=== PATIENT | male | born 1965 | race Caucasian/White ===

== ENCOUNTER → 2018-03-10 | Outpatient (CLI) | payer OTHER ==
--- NOTE | 2018-03-11 07:55 | RAD ---
Bilateral lower extremity venous ultrasound, 03/10/2018: History: Bilateral leg pain Duplex evaluation of the deep veins in the lower extremities was performed including grayscale, color-flow and spectral Doppler analysis. The femoral and popliteal veins demonstrate normal compressibility and normal responses to distal augmentation maneuvers. Color imaging of those vessels shows no evidence of intraluminal clot. The visualized deep veins in both calves are patent. IMPRESSION: There is no sonographic evidence of deep vein thrombosis in either lower extremity. Electronically signed by: Vipin Terrell MD (03/11/2018 7:51 AM) [facility]
== END | disposition home or self-care (01) ==
LOC: US 16:26
PROVIDERS: ATTEND Family Medicine
DX: R60.0 Localized edema (principal); Z86.718 Personal history of other venous thrombosis and embolism
CPT/HCPCS: 93970

== ENCOUNTER → 2018-05-20 | Outpatient (CLI) | payer OTHER ==
--- NOTE | 2018-05-20 13:07 | RAD ---
CT ABDOMEN PELVIS WO CONTRAST Indication: H/O KIDNEY STONES L FLANK PAIN X 1 MONTH NO HEMATURIA PREV SNET Exposure: One or more of the following individualized dose reduction techniques were utilized for this examination: 1. Automated exposure control 2. Adjustment of the mA and/or kV according to patient size 3. Use of iterative reconstruction technique. Comparison: None are available. Contrast: No intravenous contrast given. No oral contrast per request. Evaluation of solid viscera, bowel and vasculature is compromised by the noncontrast technique. Lung bases demonstrate mild linear fibrosis or atelectasis. Tiny hypodense lesion inferior right lobe of the liver measures less than 1 cm and too small to characterize, but would commonly be benign in the absence of other relevant clinical history such as primary tumor. Spleen unremarkable. Pancreas partially atrophic, otherwise unremarkable. No adrenal mass. Numerous tiny nonobstructive renal calculi bilaterally. No hydronephrosis no evidence of ureteric calculus or dilatation. No calcified gallstone. No aortic aneurysm. Prominent inguinal lymph nodes, measuring up to 11 mm in short axis. No evidence of bowel obstruction. Colonic diverticulosis without evidence of acute colitis. Appendix appears normal. Prostate gland measures 4.7 cm wide. Partially distended urinary bladder grossly unremarkable. No evidence of ascites or pneumoperitoneum. Degenerative spondylosis of the visualized spine. IMPRESSION: 1. Bilateral tiny nonobstructive renal calculi. No evidence of ureteric calculus or hydronephrosis. 2. Tiny right lobe liver lesion too small to characterize, most commonly be benign in the absence of other relevant history. 3. Colonic diverticulosis without evidence of acute colitis. 4. Prostate gland measures 4.7 cm wide. Electronically signed by: Pawel Arango MD (05/20/2018 1:04 PM) [facility]
== END | disposition home or self-care (01) ==
LOC: CT 11:27
PROVIDERS: ATTEND Family Medicine
DX: N20.0 Calculus of kidney (principal); K57.30 Diverticulosis of large intestine without perforation or abscess without bleeding; M47.9 Spondylosis, unspecified; R59.0 Localized enlarged lymph nodes; Z87.442 Personal history of urinary calculi
CPT/HCPCS: 74176